=== PATIENT | female | born 1940 ===

== ENCOUNTER 2019-12-31 10:30 | Inpatient (IN) | payer OTHER ==
[~2019-12-31] VITALS: Ht 165.1 cm; Wt 47.6 kg
[2019-12-31] MEDS ORDERED: MONTELUKAST SOD10 MG PO (11:28)
[2019-12-31] MEDS ORDERED: DILTIAZEM ER120 M2 PO (11:28)
[2019-12-31] MEDS ORDERED: METFORMIN HCL500 M3 PO (11:28)
[2019-12-31] MEDS ORDERED: NORVASC5 MG PO (11:29)
[2019-12-31] MEDS ORDERED: SIMVASTATIN10 MG PO (11:29)
[2019-12-31] MEDS ORDERED: PENTOXIFYLLINE400 MG PO (11:30)
== END 2020-01-05 11:13 | DRG 735 ==
LOC: O/R 01-03 06:30 → OB/GYN 01-03 06:30 → O/R 01-03 10:30 → OB/GYN 01-03 10:30
PROVIDERS: ADMIT Obstetrics & Gynecology Gynecologic Oncology
PROC: 0UT90ZZ Resection of Uterus, Open Approach (ICD-10-PCS; 2020-01-03)
PROC: 0UT20ZZ Resection of Bilateral Ovaries, Open Approach (ICD-10-PCS; 2020-01-03)
PROC: 0UT70ZZ Resection of Bilateral Fallopian Tubes, Open Approach (ICD-10-PCS; 2020-01-03)
PROC: 0TN70ZZ Release Left Ureter, Open Approach (ICD-10-PCS; 2020-01-03)
PROC: 0TN60ZZ Release Right Ureter, Open Approach (ICD-10-PCS; 2020-01-03)
PROC: 07TC0ZZ Resection of Pelvis Lymphatic, Open Approach (ICD-10-PCS; principal; 2020-01-03 18:00)
DX: C54.1 Malignant neoplasm of endometrium (principal); N83.291 Other ovarian cyst, right side; D25.1 Intramural leiomyoma of uterus